=== PATIENT | female | born 1985 ===

== ENCOUNTER 2024-01-02 19:10 | Emergency (ER) | payer MEDICAID ==
[~2024-01-02] VITALS: Ht 165.1 cm; Wt 79.0 kg
[2024-01-02 19:38] VITALS: BP 104/61; PULSE 75; RESP 16; TEMP 97.5
[2024-01-02 20:11] LABS: GLUCOMETER DEV NAME(LOC) ERT.5; GLUCOSE,POINT OF CARE 115 MG/DL (70-110)
== END 2024-01-02 21:21 | disposition left against medical advice (07) ==
LOC: EMS 19:11
DX: R53.1 Weakness (principal); R42 Dizziness and giddiness; R11.2 Nausea with vomiting, unspecified; Z53.21 Procedure and treatment not carried out due to patient leaving prior to being seen by health care provider
CPT/HCPCS: 82962; 93005